=== PATIENT | female | born 1935 | race Caucasian/White ===

== ENCOUNTER → 2016-12-05 | Outpatient (CLI) | payer OTHER ==
--- NOTE | 2016-12-05 13:24 | DX ---
DEXA Bone Mineral Densitometry Indication: 81-year-old postmenopausal woman with personal history of back pain and osteoporosis. Julieta garcia. Comparison: August 20, 2013 Technique: Bone Mineral Densitometry (BMD) by Dual Energy X-Ray Absorptiometry (DEXA) was performed utilizing the [employer] scanner. The lumbar spine was evaluated in the AP projection. The left h ip and left forearm were evaluated in the AP projection. Vertebral fracture assessment was also perfo rmed. Findings: AP Lumbar Spine: The L1, L2, L3 and L4 vertebral bodies were evaluated. BMD: 1.602 gm/cm2 T-score: 3.3 SD Z-score: 5.1 SD No change AP Left Hip: Total BMD: 0.943 gm/cm2 T-score: -0.5 SD Z-score: 1.5 SD No change AP Left Forearm, 11/06: BMD: 0.594 gm/cm2 T-score: -3.2 SD Z-score: -0.4 SD No statistical change Vertebral Fracture Assessment: No significant fracture deformity. Degenerative disk and facet arthro tyson artificially increases the BMD measurement of the lumbar spine. Conclusion: Considering the lowest measured site (forearm), the patient remains osteoporotic with a T -score of -3.2. The ten year risk for any major osteoporotic fracture is 13% and for a hip fracture i s 1.5%. Any bone loss in this patient is probably related to aging or estrogen deficiency. Preferenti al demineralization of the forearm suggests underlying hyperparathyroidism. Recommendations: Consider excluding secondary metabolic causes of bone loss (reported to be present in as many as 30% of patients with normal Z scores). Laboratory evaluation might include hydroxy joseph min D3 level, TSH, PTH, calcium, 24-hour urine calcium, phosphorous, albumin, creatinine, alkaline ph osphatase, serum electrophoresis (SPEP or UPEP), antitissue transglutaminase antibody levels (celiac disease) and CBC. If secondary causes are excluded, then consider initiating treatment with a bisph osphonate (such as Fosamax, Actonel or Boniva). If the patient is unable to use an oral bisphosphonat e, another agent such as IV bisphosphonates (Boniva or Reclast), teriparatide (Forteo), or a selectiv e estrogen receptor modulator (Evista) might be considered. Supplementing an insufficient diet to achieve total intakes of 1500 mg calcium and 800 International Units of vitamin D daily should be considered. Osteoporosis prevention and treatment begin by modifyi ng risk factors. The patient should be encouraged to participate in a regular exercise program that i ncludes weightbearing and muscle-strengthening regimens, as is clinically appropriate. Recommend follow up DEXA in one year to assess the efficacy of pharmacologic intervention and/or ramesh ection of appropriate secondary cause.
== END ==
LOC: FIMAGING 10:16
PROVIDERS: ATTEND Internal Medicine
DX: Z13.820 Encounter for screening for osteoporosis (principal); M81.0 Age-related osteoporosis without current pathological fracture; M54.9 Dorsalgia, unspecified; Z78.0 Asymptomatic menopausal state

== ENCOUNTER → 2017-07-01 | Outpatient (CLI) | payer OTHER | LOC: FIMAGING 09:33 | PROVIDERS: ATTEND Internal Medicine | DX: Z12.31 Encounter for screening mammogram for malignant neoplasm of breast (principal); Z85.3 Personal history of malignant neoplasm of breast; Z80.3 Family history of malignant neoplasm of breast | CPT/HCPCS: G0202 ==

== ENCOUNTER → 2017-08-12 | Outpatient (CLI) | payer OTHER | LOC: FIMAGING 12:42 | PROVIDERS: ATTEND Internal Medicine | DX: R47.89 Other speech disturbances (principal); E78.5 Hyperlipidemia, unspecified; Z86.73 Personal history of transient ischemic attack (TIA), and cerebral infarction without residual deficits ==

== ENCOUNTER → 2017-09-17 | Outpatient (CLI) | payer OTHER ==
--- NOTE | 2017-09-18 07:20 | CPEEG ---
[f rep st] ELECTROENCEPHALOGRAM EEG. DATE OF STUDY: 09/17/2017 INTERPRETATION: Normal EEG during wakefulness and drowsiness. There were no potentially epileptogen ic abnormalities present during the recording. REPORT: This EEG contains 9-10 Hz alpha to the posterior head regions. The background activity was normal and symmetric. There was no abnormal activation at rest, during photic stimulation or hyperve ntilation. The patient intermittently became drowsy during the study. There was no abnormal activat ion during drowsiness, or during times of arousal. The patient did not fall into sustained sleep dur ing the study. /[id number]/MODL
== END ==
LOC: FCPNEURO 13:17
PROVIDERS: ATTEND Psychiatry & Neurology Neurology
DX: R29.818 Other symptoms and signs involving the nervous system (principal)

== ENCOUNTER → 2017-09-18 | Outpatient (CLI) | payer OTHER ==
[~2017-09-18] MED LIST: GADOBUTROL 10 ML VIAL IVP ONE
== END ==
LOC: FIMAGING 08:20
PROVIDERS: ATTEND Psychiatry & Neurology Neurology
DX: G31.9 Degenerative disease of nervous system, unspecified (principal); M43.12 Spondylolisthesis, cervical region; M48.02 Spinal stenosis, cervical region
CPT/HCPCS: 70553; A9585

== ENCOUNTER 2017-10-02 06:09 | Inpatient (IN) | payer OTHER ==
[~2017-10-02 06:09] MED LIST changes: -GADOBUTROL 10 ML VIAL IVP ONE; +ROPIVACAINE 0.2% 80 MG, EPINEPHrine 0.2 MG, KETOROLAC TROMETHAMINE 30 MG in SYRINGE 0 ML IU ONE; +TRANEXAMIC ACID 3,000 MG in NS 50 ML IRR ONE
[2017-10-02] MEDS ORDERED: FAMOTIDINE 20 MG TAB PO ONE (06:18)
[2017-10-02] MEDS ORDERED: ACETAMINOPHEN 325 MG TAB PO ONE (06:18)
[2017-10-02] MEDS ORDERED: DEXAMETHASONE 4 MG/ML VIAL IVP ONE (06:18)
[2017-10-02] MEDS ORDERED: ceFAZolin 2 GM/SWFI 2 GM/20 ML SYR IVP ONE (06:18)
[2017-10-02] MEDS ORDERED: LIDOCAINE 1% 2 ML INJ ONE (06:36)
[2017-10-02] MEDS ORDERED: LIDOCAINE 1% 2 ML INJ ID PRN (06:41)
[2017-10-02] MEDS ORDERED: LR 1,000 ML IV ONE (06:41)
--- NOTE | 2017-10-02 07:02 | PDANEPAE ---
ANE History of Present Illness 82 year old female w/ PMHx of HTN, TIA (2016), previous breast cancer, GERD and OA of left hip presents for left total hip arthroplasty. ANE Past Medical History - Cardiovascular History Hx Hypertension: Yes Hx Arrhythmias: No Hx Chest Pain: No Hx Coronary Artery / Peripheral Vascular Disease: No Hx CHF / Valvular Disease: No Hx Palpitations: No - Pulmonary History Hx COPD: No Hx Asthma/Reactive Airway Disease: No Hx Recent Upper Respiratory Infection: No Hx Oxygen in Use at Home: No Hx Sleep Apnea: No Sleep Apnea Screening Result - Last Documented: Negative - Neurologic History Hx Cerebrovascular Accident: No Hx Seizures: No Hx Dementia: No Neurologic History Comment: TIA Jul w/ NO residual affects-undergoing testing 09-20. - Endocrine History Hx Diabetes: No Hypothyroid: No Hyperthyroid: No Obesity: no - Renal History Hx Renal Disorders: No - Liver History Hx Hepatic Disorders: No - Neurological & Psychiatric Hx Hx Neurological and Psychiatric Disorders: No - Cancer History Hx Cancer: Yes Cancer History Comment: LEFT BREAST CANCER 1999 - Congenital Disorder History Hx Congenital Disorders: No - GI History GERD: mild Hx Gastrointestinal Disorders: Yes Gastrointestinal History Comment: GERD - Other Health History Other Health History: NONE - Chronic Pain History Chronic Pain: Yes (BOTH HIPS AND LEFT SHOULDER) - Surgical History Prior Surgeries: 12/2014 - DISCECTOMY. 2011 - TOTAL LKR. 2008 - LAMINECTOMY. 2007 - RIGHT ANKLE REPLACEMENT. 1999 - LEFT BREAST LUMPECTOMY. 1991 - RIGHT TIBIA REPAIR ANE Review of Systems Review of systems is: negative Review of Systems: - Exercise capacity Exercise capacity: >=4 METS METS (RN): 5 METS ANE Patient History - Allergies Allergies/Adverse Reactions: lisinopril Allergy (Intermediate, Verified 09/11/17 13:00) COUGH - Home Medications Home medications: home medication list seen and reviewed Home Medications: Omeprazole [Prilosec 20 mg] 20 - 40 mg PO DAILY 09/23/12 [Last Taken 10/02/17 05 :00] Losartan Potassium [Cozaar 25 mg (*)] 25 mg PO DAILY 01/24/16 [Last Taken 07:00] Venlafaxine Xr [Effexor Xr 37.5MG (*)] 37.5 mg PO DAILY 01/24/16 [Last Taken 05:00] Ascorbic Acid [Vitamin C 500 mg (*)] 1,000 mg PO DAILY 10/12/16 [Last Taken ] C/E/Zn/Cu/OM3/DHA/EPA/LUT/ZEAX [Preservision Areds 2 Softgel] 1 each PO DAILY [Last Taken 09/18/17] Aspirin [Aspirin 81mg (*)] 81 mg PO DAILY 09/11/17 [Last Taken 09/25/17] Atorvastatin Calcium [Lipitor 20 mg (*)] 20 mg PO DAILY 09/11/17 [Last Taken 05:00] Calcium Carbonate/Vitamin D3 [CALCIUM 600 + VIT D TABLET] 2 each PO DAILY [Last Taken 09/18/17] amLODIPine BESYLATE [Norvasc 5 mg (*)] 5 mg PO DAILY 09/11/17 [Last Taken 05:00] - NPO status NPO Status: no food or drink >8 hours NPO Since - Liquids (Date): 10/01/17 NPO Since - Liquids (Time): 20:00 NPO Since - Solids (Date): 10/01/17 NPO Since - Solids (Time): 20:00 - Anes Hx Anes Hx: no prior problems - Smoking Hx Smoking Status: Former smoker Marijuana use: No - Alcohol Use Alcohol Use: Rarely - Family Anes Hx Family Anes Hx: neg - N/A Family Hx Anesthesia Complications: NONE ANE Labs/Vital Signs - Vital Signs Vital Signs: reviewed preoperatively; see RN documention for details Blood Pressure: 131/74 Heart Rate: 69 Respiratory Rate: 14 O2 Sat (%): 94 Height: 157.48 cm Weight: 66.678 kg ANE Physical Exam - Airway Neck exam: FROM Mallampati Score: Class 2 Mouth exam: normal dental/mouth exam Mouth image: 1 - Capped - Pulmonary Pulmonary: no respiratory distress - Cardiovascular Cardiovascular: regular rate and rhythym - ASA Status ASA Status: III ANE Anesthesia Plan Anesthesia Plan: general endotracheal anesthesia (General anesthesia as back up plan.), MAC, spinal
--- NOTE | 2017-10-02 07:08 | PDHPUP ---
History & Physical Update H&P update statement: This history and physical update is based on an assessment of the patient which was completed after admission or registration (within 24 hours), but prior to the surgery/procedure. H&P update: H&P reviewed & patient examined, no change in patient's condition since H&P completed
[2017-10-02] MEDS ORDERED: ACETAMINOPHEN 325 MG TAB ONE (07:16)
[2017-10-02] MEDS ORDERED: MIDAZOLAM 2 MG/2 ML VIAL IVP ONE (07:25)
[2017-10-02] MEDS ORDERED: TRANEXAMIC ACID 3,000 MG/50 ML BAG IRR ONE (07:29)
[2017-10-02] MEDS ORDERED: PROPOFOL/EMULSION 500 MG/50 ML BOTTLE IV ONE (07:56)
[2017-10-02] MEDS ORDERED: BUPIVACAINE/DEXTROSE 7.5MG/ML 2 ML SPINAL AMP SP ONE (07:57)
[2017-10-02] MEDS ORDERED: OXYCODONE/APAP 5/325 TAB PO PRN (08:58)
[2017-10-02] MEDS ORDERED: LR 500 ML IV PRN (08:58)
[2017-10-02] MEDS ORDERED: NALOXONE HCL 0.4 MG/ML INJ IVP PRN (08:58)
[2017-10-02] MEDS ORDERED: ONDANSETRON 4 MG/2 ML VIAL IVP PRN ×2 (08:58→09:46)
[2017-10-02] MEDS ORDERED: fentaNYL 100 MCG/2 ML INJ ONE ×2 (09:09→09:58)
[2017-10-02] MEDS ORDERED: epHEDrine SULFATE 10 MG/ML SYR ONE ×2 (09:13)
[2017-10-02] MEDS ORDERED: ROCURONIUM 50 MG/5 ML VIAL ONE (09:13)
[2017-10-02] MEDS ORDERED: ONDANSETRON 4 MG/2 ML VIAL ONE ×2 (09:21→10:54)
[2017-10-02] MEDS ORDERED: SUGAMMADEX SODIUM 200 MG/2 ML VIAL IVP ONE (09:21)
[2017-10-02] MEDS ORDERED: diphenhydrAMINE 25 MG CAP PO PRN (09:46)
[2017-10-02] MEDS ORDERED: LACTULOSE 20 GM/30 ML UDCUP PO PRN (09:46)
[2017-10-02] MEDS ORDERED: MAGNESIUM HYDROXIDE 30 ML UDCUP PO PRN (09:46)
[2017-10-02] MEDS ORDERED: METOCLOPRAMIDE 10 MG/2 ML VIAL IVP PRN (09:46)
[2017-10-02] MEDS ORDERED: PROMETHAZINE HCL 25 MG SUPPR PR PRN (09:46)
[2017-10-02] MEDS ORDERED: TEMAZEPAM 15 MG CAP PO PRN (09:46)
[2017-10-02] MEDS ORDERED: ONDANSETRON DISINTEGRATING 4 MG TAB PO PRN (09:46)
[2017-10-02] MEDS ORDERED: BISACODYL 10 MG SUPP PR PRN (09:46)
[2017-10-02] MEDS ORDERED: PROMETHAZINE HCL 25 MG/ML INJ IVP PRN (09:46)
[2017-10-02] MEDS ORDERED: DIPHENOXYLATE/ATROPINE LOMOTIL 1 TAB PO PRN (09:46)
--- NOTE | 2017-10-02 09:46 | POSTOPPROG ---
Post Op Note Date of Operation: 10/02/17 Surgeon: Sherice Mcdonald Mill Laborer: jhon mcdonald Anesthesiologist: dr. boss Anesthesia: GET(General Endotracheal) Pre-op Diagnosis: left hip OA Post-op Diagnosis: same Indication: left hip pain due to OA that failed conservativ emeasures Procedure: L AISLINN ant approach Findings: severe hip OA Inf/Abcess present in the surg proc area at time of surgery?: No EBL: 500-1000
[2017-10-02] MEDS: fentaNYL 100 MCG/2 ML INJ IVP PRN ×2 (09:58→10:05)
[2017-10-02] MEDS ORDERED: LR 1,000 ML IV SCH (10:00)
[2017-10-02] MEDS ORDERED: HYDROmorphONE/DILAUDID 1 MG/ML INJ ONE (10:14)
[2017-10-02] MEDS: HYDROmorphONE/DILAUDID 1 MG/ML INJ IVP PRN ×2 (10:17→10:32)
[2017-10-02] MEDS: CYCLOBENZAPRINE 10 MG TAB PO PRN (11:24)
[2017-10-02] MEDS: ACETAMINOPHEN 325 MG TAB PO SCH ×3 (11:25→23:01)
[2017-10-02] MEDS: oxyCODONE IR 5 MG TAB PO PRN ×2 (11:26→12:18)
[2017-10-02] MEDS: ceFAZolin 2 GM/DEXTROSE 100 ML IV SCH ×2 (14:28→23:00)
--- NOTE | 2017-10-02 16:37 | POSTANESTH ---
Post Anesthetic Evaluation Cardiovascular Status: Normal, Stable, Similar to Pre-Op Cond Respiratory Status: Normal, Stable, Similar to Pre-op Cond. Level of Consciousness/Mental Status: Can Participate in Eval, Alert and Oriented Pain Control: Adequate, Prn Tx Ordered Nausea/Vomiting Control: Adequate, Prn Tx Ordered Complications Possibly Related to Anesthesia: None Noted
[2017-10-02] MEDS ORDERED: ASPIRIN 325 MG TAB PO SCH (21:00)
[2017-10-02] MEDS: ASPIRIN 81 MG CHEWABLE TAB PO SCH (21:09)
[2017-10-02] MEDS: SENNOSIDES/DOCUSATE SODIUM TAB PO SCH (21:09)
[2017-10-02] MEDS: FAMOTIDINE 20 MG TAB PO SCH (21:10)
[2017-10-02] MEDS: POLYETHYLENE GLYCOL 3350 17 GM PKT PO PRN (23:01)
[2017-10-03 03:52] VITALS: TEMP 98.4
--- NOTE | 2017-10-03 06:14 | GOP ---
[f rep st] OPERATIVE REPORT DATE OF OPERATION: 10/02/2017 SURGEON: Jolie Carlson MD FLEXOGRAPHIC PRINTING MACHINIST: WOO Conte. ANESTHESIA: Spinal. PREOPERATIVE DIAGNOSIS: Left hip osteoarthritis. POSTOPERATIVE DIAGNOSIS: Left hip osteoarthritis. PROCEDURE PERFORMED: Left total hip arthroplasty with x-ray. FINDINGS: ESTIMATED BLOOD LOSS: 200 cc. COMPONENTS: Accolade II size 4 at 127, acetabular component 54 mm Tritanium. The liner is a Trident X3 36 mm, head is a Biolox Delta 36 mm -5. INDICATIONS: The patient has progressively worsening arthritis of the hip which has failed medical management. The patient understands the treatment options including continued non-operative care and has selected surgical intervention. The patient has decided to undergo total hip arthroplasty via the direct anterior approach, understanding the risks of the procedure including , but not limited to, neurovascular injury, infection, persistent pain, component wear and loosening, deep venous thrombosis, pulmonary embolism, limb length inequality, hip instability (including dislocation), and intra-operative fractures. DESCRIPTION OF PROCEDURE: After proper identification of the patient including verification and marking the surgical site, the patient was brought to the operating room and placed in the supine position. All bony prominences were well padded. Anesthesia was induced without complication and intravenous prophylactic antibiotics were administered prior to skin incision. The operative leg was placed in the Trumpf Arch table extension and the well leg in a Yellofin leg stokes. The patient was prepped and draped in the usual sterile fashion. The C-arm was draped for intra-operative fluoroscopy to check acetabular position, femoral component position including leg length and femoral offset. Attention was then drawn to surgical exposure of the hip. An incision was made with a #10 Bard Ritchie blade starting 3 cm lateral and 3 cm distal to the anterior superior iliac spine measuring 8-10 cm and coursing distally toward the greater trochanter. The skin and subcutaneous tissues were divided sharply down to the fascia rocky. The fascia rocky was incised in line with the skin incision exposing the underlying tensor fascia rocky muscle. The muscle was bluntly elevated from the fascia and the first extracapsular Cobra retractor was placed laterally at the junction of the superior femoral neck and greater trochanter. The lateral femoral circumflex vessels were identified, cauterized , and divided with the Aquamantys bipolar cautery. The deep investing fascia of the TFL was divided to allow proper mobilization of the muscle preventing damage during the retraction. The reflected head of the rectus femoris muscle was elevated off the anterior hip capsule and a medial Cobra retractor was placed just proximal to the lesser trochanter. The anterior capsulotomy was made sharply from the superolateral acetabulum to the saddle junction of the superior femoral neck and greater trochanter, then coursing inferomedial towards the lesser trochanter. The retractors were then placed in the intracapsular position for femoral neck osteotomy. Corresponding to pre-operative templating, the osteotomy was made with the oscillating saw carefully protecting the greater trochanter and soft tissues. The femoral head was removed from the acetabulum with a corkscrew and confirmed to be severely arthritic with exposed bone, deformity and osteophytes. Similar findings were confirmed in the acetabulum. The Arch table extension was then placed in 40 degrees external rotation. Attention was then drawn to the acetabular preparation. After placement of the anterior and posterior Cobra retractors outside the labrum and intracapsular, the circumferential labrum was removed sharply. The foveal contents were then removed and hemostasis obtained with cautery. The first reamer selected was sized using the removed femoral head. Reaming began with medialization and then commenced in 2 mm increments at 45 degrees of abduction and 15 degrees of anteversion using fluoroscopic navigation. Reaming ceased 1 mm less than the definitive acetabular component and corresponded to the pre-operative templating. The final acetabular component was inserted using fluoroscopy to achieve proper orientation yielding excellent purchase and stability in the acetabulum. The final acetabular liner was then placed and its seating confirmed. Attention was then turned to the femur. The Arch table extension was placed in extension and adduction, delivering the osteotomized femoral neck into the wound. A 2-pronged femoral elevator was placed at the calcar and another at the tip of the greater trochanter. The posterolateral capsule was released with cautery allowing mobilization of the femur lateral and anterior for preparation. The external rotators were visualized and preserved. A curette and rongeur were used to open the starting point for broaching. Serial broaching started with the #0 broach and ended with the broach that exhibited excellent fit in the proximal femur. A change in pitch during mallet strikes was accompanied by the inability to advance the broach any further. The trial reduction was performed and fluoroscopic navigation was utilized to check limb length. Adjustments were made to equalize limb length accordingly. After the final trials were accepted they were removed and the wound was copiously lavaged. The femoral component was seated to the same depth as the final broach and the femoral head was impacted onto the clean trunnion. The hip was then reduced for the final time and once more fluoroscopy was used to check that limb length equality was achieved. The wound was irrigated and closed in layers, the fascia rocky with 2-0 Quill, the subcutaneous tissue with 2-0 Quill, and the skin with Dermabond. Sterile dressings were applied. Final sharps and sponge counts were accurate. The patient was then transferred to a hospital bed and brought to the recovery room in stable condition. /[id number]/MODL MTDD
[2017-10-03 08:06] VITALS: BP 110/57; PULSE 76; RESP 16; O2SAT 98
[2017-10-03] MEDS: ASPIRIN 81 MG CHEWABLE TAB PO SCH (08:50)
[2017-10-03] MEDS: SENNOSIDES/DOCUSATE SODIUM TAB PO SCH (08:50)
[2017-10-03] MEDS: ACETAMINOPHEN 325 MG TAB PO SCH (08:51)
[2017-10-03] MEDS: POLYETHYLENE GLYCOL 3350 17 GM PKT PO PRN (08:53)
[2017-10-03] MEDS: FAMOTIDINE 20 MG TAB PO SCH (08:53)
[2017-10-03] MEDS: CYCLOBENZAPRINE 10 MG TAB PO PRN (08:57)
[2017-10-03] MEDS: oxyCODONE IR 5 MG TAB PO PRN (08:57)
[2017-10-03] MEDS ORDERED: LOSARTAN POTASSIUM 25 MG TAB PO SCH (09:00)
[2017-10-03] MEDS ORDERED: ATORVASTATIN CALCIUM 20 MG TAB PO SCH (09:00)
[2017-10-03] MEDS ORDERED: amLODIPine BESYLATE 5 MG TAB PO SCH (09:00)
[2017-10-03] MEDS ORDERED: VENLAFAXINE XR 37.5 MG CAP PO SCH (09:00)
--- NOTE | 2017-10-03 13:28 | ASDISCHSUM ---
Discharge Information Plan Status:Home with No Needs Medically Cleared to Leave: Discharge Date:10/03/2017 12:46 PM CM D/C Disposition:Home, Routine, Self-Care ADT D/C Disposition:Home, Routine, Self-Care Projected Discharge Date:10/03/2017 12:46 PM Transportation at D/C: Discharge Delay Reason: Follow-Up Date:10/03/2017 12:46 PM Discharge Slot: Final Diagnosis: Placement Information Patient Contact Information Contact Name:JACSHAYETRACEY Relationship:Sister Address: Work Phone: City:[place] Alternate Phone: State/[place] Code:[place] Email: Financial Information Financial Class:[facility] Primary Plan Desc:MEDICARE INPATIENT Primary Plan Number:[id number] Secondary Plan Desc:[facility] Secondary Plan Number:[id number] Assessment Information Intervention Information
--- NOTE | 2017-10-03 20:20 | SOAPPROG ---
SOAP Progress Note Assessment/Plan: Assessment: Jasmyne is doing well s/p L AISLINN 1) pain management: pain is well controlled on oral pain meds.. c/o right arm pain 2) VTE ppx: recommend aspirin 81 mg BID for 4 weeks 3) d/c to home once PT releases patient Plan: 10/03/17 10:15 Subjective: She is doing well today, denies SOB, chest pain and N/V.c/o right arm pain where IV infiltrated Objective: Vital Signs Temp Pulse Resp BP Pulse Ox 36.9 C 76 16 110/57 L 98 10/03/17 08:00 10/03/17 08:00 10/03/17 08:00 10/03/17 08:00 10/03/17 08:00 10/02/17 10/03/17 10/04/17 05:59 05:59 05:59 Intake Total 3270 Output Total 400 450 Balance 2870 -450 LLE: incision dressing is clean and dry, NVI, +pf/df ICD10 Worksheet Patient Problems: Problems Problem Status Onset Primary localized osteoarthritis of left hip Acute Primary localized osteoarthritis of right hip Acute
--- NOTE | 2017-10-07 20:54 | GDS ---
[f rep st] DISCHARGE SUMMARY ADMIT DIAGNOSIS: Left hip osteoarthritis. DISCHARGE DIAGNOSIS: Left hip osteoarthritis. PROCEDURE: Left total hip arthroplasty. VT PROPHYLAXIS: Aspirin 81 mg twice daily for 3 weeks. BRIEF DESCRIPTION OF HOSPITAL STAY: Patient was admitted for an elective joint arthroplasty. The pa tient tolerated the procedure well and has passed physical therapy. The patient was given appropriat e antibiotic prophylaxis and venous thromboembolism prophylaxis. The patient's pain was well control led on oral pain medication, patient was holding down food, and had urinated. Decision was made to d ischarge the patient. The patient was given post-operative prescriptions pre-operatively. PLAN: Please follow up as scheduled on October 21 at 11 a.m. /[id number]/MODL
== END 2017-10-03 12:46 | disposition home or self-care (01) | DRG 470 ==
LOC: F3N 06:09
PROVIDERS: ADMIT Orthopaedic Surgery; ATTEND Orthopaedic Surgery
PROC: 0SRB04Z Replacement of Left Hip Joint with Ceramic on Polyethylene Synthetic Substitute, Open Approach (ICD-10-PCS; principal; 2017-10-02 08:15)
DX: M16.12 Unilateral primary osteoarthritis, left hip (principal); I10 Essential (primary) hypertension; K21.9 Gastro-esophageal reflux disease without esophagitis; Z86.73 Personal history of transient ischemic attack (TIA), and cerebral infarction without residual deficits; Z85.3 Personal history of malignant neoplasm of breast
CPT/HCPCS: 97161-GP; 97165-GO; 97530-GP; G8978-GP-CJ; G8979-GP-CI; G8980-GP-CI; G8987-GO-CI; G8988-GO-CI; G8989-GO-CI; J0171; J0690; J1100; J1170; J1885; J2250; J2405; J2704; J2795; J3010

== ENCOUNTER 2018-03-19 11:20 | Emergency (ER) | payer OTHER ==
--- NOTE | 2018-03-19 11:30 | EDPHY ---
H & P Stated Complaint: memory deficits today Time Seen by Provider: 03/19/18 11:30 - Personal History Current Tetanus/Diphtheria Vaccine: Unsure Tetanus Vaccine Date: 2006 - Medical/Surgical History Hx Asthma: No Hx Chronic Respiratory Disease: No Hx Diabetes: No Hx Cardiac Disease: No Hx Renal Disease: No Hx Cirrhosis: No Hx Alcoholism: No Hx HIV/AIDS: No Hx Splenectomy or Spleen Trauma: No Other PMH: HTN, DEPRESSION, GERD, L TKA, RT ANKLE, R TIB ORIF, DISCECTOMY, LAME[place] ,LUMPECTOMY L 1999 - Social History Smoking Status: Former smoker Constitutional: Initial Vital Signs Temperature (C) 36.8 C 03/19/18 11:24 Heart Rate 72 03/19/18 11:24 Respiratory Rate 18 03/19/18 11:24 Blood Pressure 167/80 H 03/19/18 11:24 O2 Sat (%) 93 03/19/18 11:24 O2 Delivery Mode Room Air Allergies/Adverse Reactions: lisinopril Allergy (Intermediate, Verified 03/19/18 11:22) COUGH Home Medications: Medication Instructions Recorded Omeprazole [Prilosec 20 mg] 20 - 40 mg PO DAILY 09/23/12 Losartan Potassium [Cozaar 25 mg 25 mg PO DAILY 01/24/16 (*)] Venlafaxine Xr [Effexor Xr 37.5MG 37.5 mg PO DAILY 01/24/16 (*)] Ascorbic Acid [Vitamin C 500 mg 1,000 mg PO DAILY 10/12/16 (*)] C/E/Zn/Cu/OM3/DHA/EPA/LUT/ZEAX 1 each PO DAILY 10/12/16 [Preservision Areds 2 Softgel] Aspirin [Aspirin 81mg (*)] 81 mg PO DAILY 09/11/17 Atorvastatin Calcium [Lipitor 20 20 mg PO DAILY 09/11/17 mg (*)] Calcium Carbonate/Vitamin D3 2 each PO DAILY 09/11/17 [CALCIUM 600 + VIT D TABLET] amLODIPine BESYLATE [Norvasc 5 mg 5 mg PO DAILY 09/11/17 (*)] Acetaminophen [Tylenol 325mg (*)] 650 mg PO Q6HRS tab 10/02/17 Aspirin [Aspirin 81mg (*)] 81 mg PO BID tab.chew 10/02/17 Sennosides/Docusate Sodium 1 - 2 tab PO BID tab 10/02/17 [Senokot-S] celeCOXIB [Celebrex (*)] 200 mg PO DAILY cap 10/02/17 oxyCODONE IR [Oxycodone Ir (*)] 5 - 10 mg PO Q3HRS PRN tab 10/02/17 Medical Decision Making - Diagnostics Imaging Results: Imaging Impressions Brain MRI 03/19/18 12:00 Impression: 1. No acute intracranial findings. 2. Atrophy with grossly stable white matter change most likely related to chronic microvascular ischemic gliosis, although vasculitis, demyelination, or other etiologies could have a similar appearance. Findings discussed with renny Sena for Dr. Joao Harrison on March 19, 2018 at 1455 hours. Imaging: Discussed imaging studies w/ crusher setter Radiologist ED Course/Re-evaluation: CHIEF COMPLAINT: Memory and cognitive deficits HISTORY OF PRESENT ILLNESS: 83-year-old fairly healthy woman who just returned from a 2 week hiking trip in [place]. Over the last few weeks and even before the hiking trip this patient has been worked up for intermittent atrial fibrillation. She does not actually feel when she is in AFib. Over the last several weeks she has also had some intermittent difficulty with memory and cognition. Today she describes reading an e-mail and that she does not remember writing and could not comprehend what it said and then after some time she recalled the email. Similar symptoms have been occurring over the last couple weeks. She denies any peripheral deficits like weakness numbness or tingling. Once again she was hiking without difficulty over the last 2 weeks fairly consistently. And she is quite active. She is currently expecting a Holter monitor to come in the mail as she has been worked up for this atrial fibrillation. REVIEW OF SYSTEMS: A 10 point review of systems was performed and is negative with the exception of the elements mentioned in the history of present illness. PHYSICAL EXAM: HR, BP, O2 Sat, RR. Temp noted General Appearance: Alert, well hydrated, appropriate, and non-toxic appearing. Head: Atraumatic without scalp tenderness or obvious injury Eyes: Pupils equal, round, reactive to light and accommodation, EOMI, no trauma , no injection. Ears: Clear bilaterally, no perforation, normal landmarks Nose: Atraumatic, no rhinorrhea, clear. Throat: There is no erythema or exudates, no lesions, normal tonsils, mucus membranes moist. Neck: Supple, 2+ carotid upstroke, nontender, no lymphadenopathy. Respiratory: No retractions, no distress, no wheezes, and no accessory muscle use. Lungs are clear to auscultation bilaterally. Cardiovascular: Regular rate and rhythm, no murmurs, rubs, or gallops. Bilateral carotid, radial, dorsalis pedis, and posterior tibial pulses intact. Good capillary refill all extremities. Gastrointestinal: Abdomen is soft, nontender, non-distended, no masses, no rebound, no guarding, no peritoneal signs. Musculoskeletal: Normal active ROM of all extremities, atraumatic. Neurological: Alert, appropriate, and interactive. The patient has normal DTRs and non-focal cranial nerves, motor, sensory, and cerebellar exam. Skin: No rashes, good turgor, no nodules on palpation. Past medical history: Possible atrial fibrillation, hypertension Past surgical history: Noncontributory Family history: Noncontributory Social history: , retired, does not abuse tobacco drugs or alcohol DIAGNOSTICS/PROCEDURES/CRITICAL CARE TIME: Study: MRI of the: Brain without contrast Indication: Neurologic deficits Results: MRI scan of the brain was obtained. The results of the study are normal. The study was read by the radiologist, Dr. Troy. I viewed the images myself on the PACS system. DIFFERENTIAL DIAGNOSIS: The differential diagnosis for the patient's altered mental status included but was not limited to hypoglycemia, infectious process, electrolyte abnormality, head injury, neurologic process, anemia, cardiac process, and intoxicants. MEDICAL DECISION MAKING: This patient has a history of intermittent atrial fibrillation but she does not actually know when she is in atrial fibrillation. Consequently, I am concerned that she may be in AFib more that she thinks since she might have formed a clot which cause her neurologic deficits. Her deficits seem to be intermittent and seem to resolve fairly quickly over 30 min to an hour. Her last episode which happened a couple of hours goes completely resolved. She has a completely normal neurologic exam now. Laboratory studies are pending. EKG is sinus mechanism. MRI is pending. 14:[address] Troy, radiologist. MRI brain negative for acute processes. Normal age-related atrophy noted. 15:00 Reassessed patient. Discussed imaging results. I do not see any obvious etiology for the patient's symptoms. She is currently completely asymptomatic. Plan to discharge home in good condition with referral to neurology. Return precautions discussed. She is comfortable with this plan. - Data Points Laboratory Results: Laboratory Results 03/19/18 11:55 03/19/18 11:55 03/19/18 03/19/18 03/19/18 12:15 11:55 11:55 WBC 5.42 10^3/uL 10^3/uL (3.80-9.50) RBC 4.27 10^6/uL 10^6/uL (4.18-5.33) Hgb 11.7 g/dL L g/dL (12.6-16.3) Hct 36.7 % L % (38.0-47.0) MCV 85.9 fL fL (81.5-99.8) MCH 27.4 pg L pg (27.9-34.1) MCHC 31.9 g/dL L g/dL (32.4-36.7) RDW 17.2 % H % (11.5-15.2) Plt Count 316 10^3/uL 10^3/uL (150-400) MPV 9.5 fL fL (8.7-11.7) Neut % (Auto) 55.7 % % (39.3-74.2) Lymph % (Auto) 32.1 % % (15.0-45.0) [place] % (Auto) 8.9 % % (4.5-13.0) Eos % (Auto) 2.4 % % (0.6-7.6) Baso % (Auto) 0.7 % % (0.3-1.7) Nucleat RBC Rel Count 0.0 % % (0.0-0.2) Absolute Neuts (auto) 3.02 10^3/uL 10^3/uL (1.70-6.50) Absolute Lymphs (auto) 1.74 10^3/uL 10^3/uL (1.00-3.00) Absolute Monos (auto) 0.48 10^3/uL 10^3/uL (0.30-0.80) Absolute Eos (auto) 0.13 10^3/uL 10^3/uL (0.03-0.40) Absolute Basos (auto) 0.04 10^3/uL 10^3/uL (0.02-0.10) Absolute Nucleated RBC 0.00 10^3/uL 10^3/uL (0-0.01) Immature Gran % 0.2 % % (0.0-1.1) Immature Gran # 0.01 10^3/uL 10^3/uL (0.00-0.10) Sodium 141 mEq/L mEq/L (135-145) Potassium 4.4 mEq/L mEq/L (3.3-5.0) Chloride 102 mEq/L mEq/L (97-110) Carbon Dioxide 27 mEq/l mEq/l (22-31) Anion Gap 12 mEq/L mEq/L (8-16) BUN 15 mg/dL mg/dL (7-23) Creatinine 0.7 mg/dL mg/dL (0.6-1.0) Estimated GFR > 60 Glucose 80 mg/dL mg/dL (70-100) Calcium 8.7 mg/dL mg/dL (8.5-10.4) Troponin I < 0.012 ng/mL ng/mL (0.000-0.034) Urine Color YELLOW Urine Appearance CLEAR Urine pH 6.0 (5.0-7.5) Ur Specific [place] 1.009 (1.002-1.030) Urine Protein NEGATIVE (NEGATIVE) Urine Ketones NEGATIVE (NEGATIVE) Urine Blood NEGATIVE (NEGATIVE) Urine Nitrate NEGATIVE (NEGATIVE) Urine Bilirubin NEGATIVE (NEGATIVE) Urine Urobilinogen NEGATIVE EU EU (0.2-1.0) Ur Leukocyte Esterase NEGATIVE (NEGATIVE) Urine RBC 1-3 /hpf /hpf (0-3) Urine WBC 1-3 /hpf /hpf (0-3) Ur Epithelial Cells TRACE /lpf /lpf (NONE-1+) Urine Mucus TRACE /lpf /lpf (NONE-1+) Urine Glucose NEGATIVE (NEGATIVE) Departure - Departure Disposition: Home, Routine, Self-Care Clinical Impression: Transient memory loss Condition: Good Instructions: Transient Global Amnesia (ED) Additional Instructions: 1. Follow up with neurology for further evaluation. 2. Return to the emergency department for severe headache, recurrent memory deficits, weakness or numbness, fever, chest pain, shortness of breath, or other worsening of condition or further concerns. Referrals: Akila Whitman MD [Primary Care Provider] - As per Instructions Oz Arreola MD [Medical Doctor] - As per Instructions Report Scribed for: Joao Harrison Report Scribed by: Kamla Clemens Date of Report: 03/19/18 Time of Report: 15:07
--- NOTE | 2018-03-19 11:50 | CPEKG ---
Heart Rate: 67 RR Interval: 896 P-R Interval: 184 QRSD Interval: 96 QT Interval: 432 QTC Interval: 456 P [place]: 55 QRS [place]: -29 T Wave [place]: 3 EKG Severity - BORDERLINE ECG - EKG Impression: SINUS RHYTHM EKG Impression: PROBABLE LEFT ATRIAL ABNORMALITY EKG Impression: BORDERLINE LEFT AXIS DEVIATION EKG Impression: BORDERLINE R WAVE PROGRESSION, ANTERIOR LEADS Electronically Signed By: Joao Harrison 19-Mar-2018 13:51:28
[2018-03-19 12:06] LABS: PLATELET COUNT 316 10^3/uL (150-400)
[2018-03-19 15:33] VITALS: BP 141/68
== END 2018-03-19 15:33 | disposition home or self-care (01) ==
DX: G45.4 Transient global amnesia (principal); I10 Essential (primary) hypertension; Z79.82 Long term (current) use of aspirin; Z87.891 Personal history of nicotine dependence

== ENCOUNTER 2018-03-21 16:29 | Emergency (ER) | payer OTHER ==
--- NOTE | 2018-03-21 17:36 | EDPHY ---
HPI/HX/ROS/PE/MDM Narrative: CHIEF COMPLAINT: Headache, memory problems HISTORY OF PRESENT ILLNESS: The patient is an 83 y/o female with a history of a TIA, possible atrial fibrillation, and hypertension complaining of intermittent memory loss and a headache. In July she was diagnosed with a TIA. On Saturday, 2 days ago, she had a episode of transient memory loss that lasted for 1 hour. At this time she presented to the emergency department and had a normal Brain MRI findings. Patient was felt to have experience transient global amnesia. Since this ED visit, she has made appointments with Dr. Puente, stacker driver, and Dr. Arreola, neurologist. She is scheduled to have a Holter monitor placed for potential atrial fibrillation. Today she had another episode of transient memory loss and became concerned. The episode today lasted around 1 hour. Just prior to these episodes she felt normal. During these episodes she does not have weakness or speech difficulties. She is not confused. Per family, during the episode today the patient did not know the time or where she was. Her speech was not slurred at that time. Since the amnesia episode she has had a headache. Denies history of seizures. Denies recent fall or injury. She is also concerned about her medications regarding her atrial fibrillation. She discussed a need for anticoagulation with Dr. Puente and had been recommended to continue on a baby aspirin a day. No fever, chills, chest pain, shortness of breath, palpitations, vomiting, diarrhea, urinary complaints, lightheadedness. REVIEW OF SYSTEMS: Aside from elements discussed in the HPI, a comprehensive 10-point review of systems was reviewed and is negative. PAST MEDICAL HISTORY: TIA, hypertension, atrial fibrillation, depression, GERD, multiple orthopedic surgeries SOCIAL HISTORY: Family at bedside, lives in [place], single, retired VITAL SIGNS: Reviewed by me GENERAL: Well-developed, well-nourished, resting comfortably in no respiratory distress. HEENT: Atraumatic. Eyes: No icterus, no injection. JENY, EOMI. Cranial nerves 2-12 are intact. Mouth: moist mucous membranes. No erythema or lesions. Neck: supple with no adenopathy. LUNGS: Clear to auscultation bilaterally, no wheezes, rhonchi or rales. CARDIAC: Regular rate and rhythm, no rubs, murmurs or gallops. ABDOMEN: Soft, nontender, nondistended, bowel sounds normal. BACK: No CVA tenderness. EXTREMITIES: No trauma. No edema. Range of motion is normal throughout. NEURO: Alert and oriented, cranial nerves 2-12 are intact, normal motor throughout. Normal sensory exam throughout. No gait difficulties. SKIN: Warm and dry, no rash. PSYCHIATRIC: Normal mentation, no agitation. Portions of this note were transcribed by a medical management specialist. I personally performed a history, physical exam, medical decision making, and confirmed accuracy of information the transcribed note. ED Course: The patient is an 83 y/o female with a history of a TIA, atrial fibrillation, and hypertension complaining of intermittent memory loss, and a headache today. This is her second episode of transient memory loss since Saturday, 2 days ago. Her physical exam is normal, she is not in atrial fibrillation. EKG, head CT, and labs ordered. 1824: 12-LEAD EKG: Please see the full report in [facility]. My interpretation: Sinus rhythm with a rate of 60, borderline left axis deviation 1828: Spoke with Dr. Reeves, patients head CT is unchanged from Brain MRI. 1858: Consulted with Dr. Arreola, neurologist, regarding this patient. We discussed to the transient nature of the patient's presentation, and the fact that the memory loss last approximately [address] Ambrocio agrees that this does not sound typical for transient global amnesia. Likewise, does not sound typical for TIA as there is no focality to the patient's symptoms. Symptoms may be the results of seizure activity or the metabolic abnormalities. Dr. Ambrocio recommended is Keppra 250 twice daily with close follow-up as well as a recommendations the patient should increase her aspirin to 324 daily from 81 mg daily. 1910: Reassessed patient and discussed laboratory, imaging, and consultation. Patient is comfortable with Keppra prescription and Aspirin change. I have advised her to keep her appointment with Dr. Arreola. Strict return precautions provided; patient is comfortable with this plan. MDM: Differential diagnoses the patient's presenting complaints was considered including but not limited to intracranial hemorrhage, TIA, transient global amnesia, partial complex seizures, cardiac causes, hypoglycemia, complex migraine, metastases, tumor, seizure, or electrolyte abnormality - Data Points Imaging Results: Head CT Impression: Stable noncontrast CT of the brain, similar in appearance to MRI brain 2 days earlier. Results called to Dr. Doretha Lee at 6:30 PM at the time of the interpretation. Dictated By: Roland Reeves MD Imaging: Discussed imaging studies w/ robotic weld technician Radiologist Laboratory Results: Laboratory Results 03/21/18 18:02 03/21/18 18:02 Medications Given: Discontinued Medications Levetiracetam (Keppra) 250 mg PO EDNOW ONE Stop: 03/21/18 19:19 Last Admin: 03/21/18 19:54 Dose: 250 mg General Time Seen by Provider: 03/21/18 17:32 Initial Vital Signs: Initial Vital Signs Temperature (C) 36.7 C 03/21/18 16:37 Heart Rate 68 03/21/18 16:37 Respiratory Rate 18 03/21/18 16:37 Blood Pressure 147/76 H 03/21/18 16:37 O2 Sat (%) 93 03/21/18 16:37 O2 Delivery Mode Room Air O2 (L/minute) 2 Allergies/Adverse Reactions: lisinopril Allergy (Intermediate, Verified 03/19/18 11:22) COUGH Home Medications: Medication Instructions Recorded Omeprazole [Prilosec 20 mg] 20 - 40 mg PO DAILY 09/23/12 Losartan Potassium [Cozaar 25 mg 25 mg PO DAILY 01/24/16 (*)] Venlafaxine Xr [Effexor Xr 37.5MG 37.5 mg PO DAILY 01/24/16 (*)] Ascorbic Acid [Vitamin C 500 mg 1,000 mg PO DAILY 10/12/16 (*)] C/E/Zn/Cu/OM3/DHA/EPA/LUT/ZEAX 1 each PO DAILY 10/12/16 [Preservision Areds 2 Softgel] Aspirin [Aspirin 81mg (*)] 81 mg PO DAILY 09/11/17 Atorvastatin Calcium [Lipitor 20 20 mg PO DAILY 09/11/17 mg (*)] Calcium Carbonate/Vitamin D3 2 each PO DAILY 09/11/17 [CALCIUM 600 + VIT D TABLET] Acetaminophen [Tylenol 325mg (*)] 650 mg PO Q6HRS tab 10/02/17 Aspirin [Aspirin 81mg (*)] 81 mg PO BID tab.chew 10/02/17 oxyCODONE IR [Oxycodone Ir (*)] 5 - 10 mg PO Q3HRS PRN tab 10/02/17 Diltiazem 03/21/18 levETIRAcetam [Keppra 250 mg (*)] 250 mg PO BID 30 Days tab 03/21/18 Departure - Departure Disposition: Home, Routine, Self-Care Clinical Impression: Amnesia memory loss Condition: Good Instructions: Levetiracetam (By mouth), Transient Global Amnesia (ED), New Onset Absence Seizures in Adults (ED) Additional Instructions: Take Keppra as prescribed. Take a full dose, 324mg, of Aspirin daily. Keep your appointment with Dr. Arreola, neurologist. Return to the Emergency Department for severe headache, vomiting, vision changes , confusion, extremity or facial numbness, speech difficulties, fever or other concerns. Referrals: Akila Whitman MD [Primary Care Provider] - As per Instructions Cas Puente MD [Medical Doctor] - As per Instructions Oz Arreola MD [Medical Doctor] - As per Instructions Prescriptions: levETIRAcetam [Keppra 250 mg (*)] 250 mg PO BID 30 Days tab Report Scribed for: Doretha Lee Report Scribed by: Alessia Angel Date of Report: 03/21/18 Time of Report: 17:34
[2018-03-21 18:12] LABS: PLATELET COUNT 332 10^3/uL (150-400)
[2018-03-21 18:18] LABS: INR 1.01 (0.83-1.16); PROTIME(PATIENT) 13.5 SEC (12.0-15.0)
--- NOTE | 2018-03-21 18:27 | CPEKG ---
Heart Rate: 60 RR Interval: 1000 P-R Interval: 188 QRSD Interval: 94 QT Interval: 428 QTC Interval: 428 P [place]: 68 QRS [place]: -29 T Wave [place]: 24 EKG Severity - OTHERWISE NORMAL ECG - EKG Impression: SINUS RHYTHM EKG Impression: BORDERLINE LEFT AXIS DEVIATION Electronically Signed By: Doretha Lee 21-Mar-2018 22:11:16
[2018-03-21] MEDS ORDERED: levETIRAcetam 500 MG TAB PO ONE (19:18)
[2018-03-21 19:50] VITALS: BP 119/66
[2018-03-21] MEDS ORDERED: levETIRAcetam 500 MG TAB ONE (19:53)
== END 2018-03-21 19:56 | disposition home or self-care (01) ==
DX: R41.3 Other amnesia (principal); I10 Essential (primary) hypertension; Z79.82 Long term (current) use of aspirin

== ENCOUNTER → 2018-04-14 | Outpatient (CLI) | payer OTHER ==
--- NOTE | 2018-04-14 13:52 | CPEEG ---
[f rep st] ELECTROENCEPHALOGRAM DATE OF STUDY: 04/14/2018 INTERPRETATION: This 4-hour video EEG recording is normal. There were no potentially epileptogenic abnormalities present in the awake or sleep recordings. During the video EEG monitoring session, the patient did not have any clinical events. REPORT: This 4-hour video EEG contains 9 Hz alpha activity to the posterior head regions. There was no abnormal activation at rest or during photic stimulation hyperventilation. The patient became dr owsy and fell into sustained sleep during the study. There was no abnormal activation during drowsin ess, sleep, or during times of arousal. The patient did not have any clinical events during the vide o EEG monitoring session. /[id number]/MODL
== END ==
LOC: FCPNEURO 07:59
PROVIDERS: ATTEND Psychiatry & Neurology Neurology
DX: R41.3 Other amnesia (principal)

== ENCOUNTER 2018-04-30 11:16 | Day surgery (SDC) | payer OTHER ==
[2018-04-30] MEDS ORDERED: LIDOCAINE 1% 2 ML INJ ID PRN (11:52)
[2018-04-30] MEDS ORDERED: LR 1,000 ML IV ONE (11:52)
--- NOTE | 2018-04-30 12:09 | PDANEPAE ---
ANE History of Present Illness EGD ANE Past Medical History - Cardiovascular History Hx Hypertension: Yes Hx Arrhythmias: No Hx Chest Pain: No Hx Coronary Artery / Peripheral Vascular Disease: No Hx CHF / Valvular Disease: No Hx Palpitations: No - Pulmonary History Hx COPD: No Hx Asthma/Reactive Airway Disease: No Hx Recent Upper Respiratory Infection: No Hx Oxygen in Use at Home: No Hx Sleep Apnea: No - Neurologic History Hx Cerebrovascular Accident: No Hx Seizures: No Hx Dementia: No Neurologic History Comment: TIA Jul w/ NO residual affects-undergoing testing 09-20. - Endocrine History Hx Diabetes: No - Renal History Hx Renal Disorders: No - Liver History Hx Hepatic Disorders: No - Neurological & Psychiatric Hx Hx Neurological and Psychiatric Disorders: No - Cancer History Hx Cancer: Yes Cancer History Comment: LEFT BREAST CANCER 1999 - Congenital Disorder History Hx Congenital Disorders: No - GI History Hx Gastrointestinal Disorders: Yes Gastrointestinal History Comment: GERD - Other Health History Other Health History: NONE - Chronic Pain History Chronic Pain: Yes (BOTH HIPS AND LEFT SHOULDER) - Surgical History Prior Surgeries: 12/2014 - DISCECTOMY. 2011 - TOTAL LKR. 2008 - LAMINECTOMY. 2007 - RIGHT ANKLE REPLACEMENT. 1999 - LEFT BREAST LUMPECTOMY. 1991 - RIGHT TIBIA REPAIR ANE Review of Systems Review of systems is: negative Review of Systems: - Exercise capacity Exercise capacity: >=4 METS ANE Patient History - Allergies Allergies/Adverse Reactions: lisinopril Allergy (Intermediate, Verified 03/19/18 11:22) COUGH - Home Medications Home medications: home medication list seen and reviewed Home Medications: Omeprazole [Prilosec 20 mg] 20 - 40 mg PO DAILY 09/23/12 [Last Taken 04/30/18 08 :00] Losartan Potassium [Cozaar 25 mg (*)] 25 mg PO DAILY 01/24/16 [Last Taken 08:00] Venlafaxine Xr [Effexor Xr 37.5MG (*)] 37.5 mg PO DAILY 01/24/16 [Last Taken 08:00] C/E/Zn/Cu/OM3/DHA/EPA/LUT/ZEAX [Preservision Areds 2 Softgel] 1 each PO DAILY [Last Taken 04/29/18] Atorvastatin Calcium [Lipitor 20 mg (*)] 20 mg PO DAILY 09/11/17 [Last Taken 08:00] Diltiazem 03/21/18 [Last Taken 04/30/18 08:00] Aspirin 325 mg (*) 04/30/18 [Last Taken 04/29/18] - Anes Hx Anes Hx: no prior problems - Smoking Hx Smoking Status: Former smoker - Family Anes Hx Family Hx Anesthesia Complications: NONE ANE Labs/Vital Signs - Vital Signs Height: 157.48 cm Weight: 65.771 kg ANE Physical Exam - Airway Neck exam: FROM Mallampati Score: Class 1 Mouth exam: normal dental/mouth exam - Pulmonary Pulmonary: no respiratory distress - Cardiovascular Cardiovascular: regular rate and rhythym - ASA Status ASA Status: III ANE Anesthesia Plan Anesthesia Plan: GA with mask
[2018-04-30] MEDS ORDERED: PROPOFOL 200 MG/20 ML VIAL ONE ×2 (12:14)
[2018-04-30] MEDS ORDERED: LIDOCAINE 2% 5 ML SDV ONE (12:16)
--- NOTE | 2018-04-30 12:36 | PDGENHP ---
History & Physical Chief Complaint: dysphagia History of Present Illness: hx reflux, hx fundoplication, dysphagia Pertinent Past, Social, Family History: Fhx - colon cancer sister age 42, breast cancer. social - quit tobacco 40 years, rare alcohol. PMH - htn, hyperlipid, breast cancer, tia Relevant Physical Exam: A+Ox3. CTA. S1S2, RRR. +BS, soft, nt Cardiorespiratory Assessment: class 3
[2018-04-30] MEDS ORDERED: ACETAMINOPHEN 500 MG TAB PO PRN (13:10)
[2018-04-30] MEDS ORDERED: fentaNYL 100 MCG/2 ML INJ IVP PRN (13:10)
[2018-04-30] MEDS ORDERED: NALOXONE HCL 0.4 MG/ML INJ IVP PRN (13:10)
[2018-04-30] MEDS ORDERED: LABETALOL HCL 5 MG/ML 20 ML MDV IVP PRN (13:10)
[2018-04-30] MEDS ORDERED: ONDANSETRON 4 MG/2 ML VIAL IVP PRN (13:10)
[2018-04-30] MEDS ORDERED: ALBUTEROL 3 ML DEYVIAL IH PRN (13:10)
[2018-04-30] MEDS ORDERED: HYDROCODONE/APAP 5/325 TAB PO PRN (13:10)
[2018-04-30] MEDS ORDERED: oxyCODONE IR 5 MG TAB PO PRN (13:10)
--- NOTE | 2018-04-30 13:11 | POSTANESTH ---
Post Anesthetic Evaluation Cardiovascular Status: Normal, Stable Respiratory Status: Normal, Stable Level of Consciousness/Mental Status: Can Participate in Eval, Alert and Oriented Pain Control: Adequate, Prn Tx Ordered Nausea/Vomiting Control: Adequate, Prn Tx Ordered Complications Possibly Related to Anesthesia: None Noted
--- NOTE | 2018-04-30 13:15 | GIREPORT ---
[facility] Surgical Services - Endoscopy Department Patient Name: Jasmyne Vo Procedure Date: 04/30/2018 11:37 AM Patient Type: Outpatient Attending MD/ ER Physician: Eryn Steele Procedure: Upper GI endoscopy Indications: Dysphagia Providers: Mac Sawyer MD Referring MD: Akila Whitman Medicines: Total IV Anesthesia (TIVA) = IV general w/o airway Complications: No immediate complications. Estimated blood loss: None. Description of Procedure: After obtaining informed consent, the endoscope was passed under direct vision. Throughout the procedure, the patient's blood pressure, pulse, and oxygen saturations were monitored continuously. The Endoscope was intro duced through the mouth, and advanced to the third part of duodenum. The uppe r GI endoscopy was accomplished without difficulty. The patient tolerated th e procedure well. Findings: Abnormal motility was noted in the esophagus. The distal esophagus/lowe r esophageal sphincter is patulous. Normal peristalsis not noted. A prior Fareed fundoplication was found at the gastroesophageal junctio n. The lower third of the esophagus was significantly tortuous. A hiatal hernia was present. The examined duodenum was normal. The exam was otherwise without abnormality. Estimated Blood Loss: Estimated blood loss: none. Post Op Diagnosis: - A Fareed fundoplication was found. - Tortuous esophagus. - Hiatal hernia. - Normal examined duodenum. - The examination was otherwise normal. - No specimens collected. Recommendation: - Follow an antireflux regimen. - Use Protonix (pantoprazole) 40 mg PO daily. Take 30-60 minutes before breakfast. - Use Zantac (ranitidine) 300 mg PO at bedtime. - If symptoms persist, consider imaging study to evaluate for paraesoph ageal hernia. - Discharge patient to home (ambulatory). - Return to primary care physician as previously scheduled. - Thank you for allowing me to help in your patient's care. Do not hesi yanez to call with any questions. Attending Participation: I personally performed the entire procedure. Digna Watts M.D Mac Sawyer MD 04/30/2018 1:14:59 PM This report has been signed electronicallyMathew MD Digna Number of Addenda: 0 Note Initiated On: 04/30/2018 11:37 AM [email or web address]
[2018-04-30 13:45] VITALS: BP 137/72
== END 2018-04-30 14:10 | disposition home or self-care (01) ==
LOC: FSGY 11:16
PROVIDERS: ATTEND Internal Medicine Gastroenterology
PROC: 0DJ08ZZ Inspection of Upper Intestinal Tract, Via Natural or Artificial Opening Endoscopic (ICD-10-PCS; principal; 2018-04-30 12:45)
DX: K22.8 Other specified diseases of esophagus (principal); K44.9 Diaphragmatic hernia without obstruction or gangrene
CPT/HCPCS: J2704

== ENCOUNTER → 2018-05-09 | Outpatient (CLI) | payer OTHER | LOC: FIMAGING 08:59 | PROVIDERS: ATTEND Internal Medicine Gastroenterology | DX: K22.4 Dyskinesia of esophagus (principal); K22.0 Achalasia of cardia; K44.9 Diaphragmatic hernia without obstruction or gangrene ==

== ENCOUNTER → 2018-05-14 | Outpatient (CLI) | payer OTHER | LOC: BHFA 15:30 | PROVIDERS: ATTEND Internal Medicine Cardiovascular Disease | DX: I47.1 Supraventricular tachycardia (principal) ==

== ENCOUNTER → 2018-05-19 | Day surgery (SDC) | payer OTHER ==
[~2018-05-19] MED LIST changes: +LIDOCAINE 1% 300 MG/30 ML SDV SC ONE; -ROPIVACAINE 0.2% 80 MG, EPINEPHrine 0.2 MG, KETOROLAC TROMETHAMINE 30 MG in SYRINGE 0 ML IU ONE; -TRANEXAMIC ACID 3,000 MG in NS 50 ML IRR ONE
--- NOTE | 2018-05-19 11:11 | PDGENHP ---
History & Physical Chief Complaint: palpitations, ?tia Relevant Physical Exam: s1s2 rrr cta ao3 Cardiorespiratory Assessment: for linq to assess for undiagnosed afib
--- NOTE | 2018-05-19 11:56 | EPPROC ---
Electrophysiology Procedure Note: Procedure performed - [employer] implantable loop recorder Indication - patient has a history of possible TIA, she has had SVT documented on monitor, loop recorder is being implanted to assess for atrial fibrillation in need for long-term anticoagulation Procedure - IV access was established, left parasternal area was prepped and draped in the usual sterile fashion. Lidocaine was used for local anesthesia. Using the provided implant tools, the [employer] LINQ monitor, serial number [id number] was implanted in the left 4th intercostal space in the parasternal area. Wound was closed with 3 lucia. There were no immediate complications. R-wave amplitude was 0.6 mV device is programmed to detect heart rate less than 40 beats per minute, more than 170 beats per minute, pauses more than 3 sec. Patient Problems: Problems Problem Status Onset Palpitations Acute Afib Acute Primary localized osteoarthritis of left hip Acute Primary localized osteoarthritis of right hip Acute
== END | disposition home or self-care (01) ==
LOC: FCATH 10:00
PROVIDERS: ATTEND Internal Medicine Cardiovascular Disease
PROC: 0JH60PZ Insertion of Cardiac Rhythm Related Device into Chest Subcutaneous Tissue and Fascia, Open Approach (ICD-10-PCS; principal; 2018-05-19)
DX: I47.1 Supraventricular tachycardia (principal); I10 Essential (primary) hypertension; E78.00 Pure hypercholesterolemia, unspecified
CPT/HCPCS: C1764

== ENCOUNTER → 2018-07-17 | Outpatient (CLI) | payer OTHER | LOC: FIMAGING 15:34 | PROVIDERS: ATTEND Internal Medicine | DX: Z12.31 Encounter for screening mammogram for malignant neoplasm of breast (principal); Z80.3 Family history of malignant neoplasm of breast; Z85.3 Personal history of malignant neoplasm of breast ==

== ENCOUNTER → 2018-10-23 | Outpatient (CLI) | payer OTHER ==
[~2018-10-23] MED LIST changes: +IOPAMIDOL (ISOVUE 370) 100 ML BTL IV ONE; -LIDOCAINE 1% 300 MG/30 ML SDV SC ONE
== END ==
LOC: FIMAGING 15:04
PROVIDERS: ATTEND Psychiatry & Neurology Neurology
DX: G45.9 Transient cerebral ischemic attack, unspecified (principal); R41.3 Other amnesia; I65.23 Occlusion and stenosis of bilateral carotid arteries; M50.322 Other cervical disc degeneration at C5-C6 level
CPT/HCPCS: 70496; 70498; Q9967; 82565-PO